=== PATIENT | male | born 1960 | race Caucasian/White ===

== ENCOUNTER 2023-01-17 18:40 | Emergency (ER) | payer OTHER ==
[~2023-01-17] VITALS: Ht 177.8 cm; Wt 77.1 kg
[2023-01-17 18:42] VITALS: BP 134/79
--- NOTE | 2023-01-17 18:50 | NUR ---
PT AMBULATED TO BED 3
[2023-01-17 19:13] LABS: BASOPHILS % (AUTO) 0.4 % (0.0-2.0); EOSINOPHILS # (AUTO) 0.3 K/uL (0-0.4); EOSINOPHILS % (AUTO) 2.8 % (0.0-4.0); HEMATOCRIT 40.5 % (36-52); HEMOGLOBIN 13.7 g/dL (12.0-18.0); LYMPHOCYTES # (AUTO) 1.6 K/uL (2.0-11.5); LYMPHOCYTES % (AUTO) 16.1 % (20.5-51.1); MEAN CORPUSCULAR HEMOGLOBIN 29 pg (27-31); MEAN CORPUSCULAR HGB CONC 34 g/dL (33-37); MEAN CORPUSCULAR VOLUME 84.6 fL (80-94); MONOCYTES % (AUTO) 9.8 % (1.7-9.3); NEUTROPHILS % (AUTO) 70.9 % (42.2-75.2); PLATELET COUNT (AUTO) 220 K/uL (140-450); RED BLOOD CELL COUNT(AUTO) 4.78 MIL/uL (4.20-6.10); RED CELL DISTRIBUTION WIDTH 14.1 % (11.6-13.7); WHITE BLOOD COUNT (AUTO) 9.8 K/uL (4.8-10.8)
[2023-01-17] MEDS ORDERED: KETOROLAC 30 MG/ML VIAL IVP ONE (19:15)
[2023-01-17] MEDS ORDERED: NACL 0.9% 1,000 ML IV ONE (19:15)
[2023-01-17 19:29] LABS: ALBUMIN 3.7 g/dL (3.4-5.0); ANION GAP 12.6 (8-16); CARBON DIOXIDE 29.3 mmol/L (21-32); CREATININE 1.1 mg/dL (0.6-1.3); POTASSIUM 3.9 mmol/L (3.5-5.1); TOTAL BILIRUBIN 0.3 mg/dL (0.0-1.0)
--- NOTE | 2023-01-17 19:35 | NUR ---
PT STATES HE DOES NOT WANT AN IV, MADE AWARE. MEDICATION DRAWN UP AND WASTED AND BEDSIDE.
[2023-01-17] MEDS ORDERED: IBUPROFEN 800 MG TAB PO ONE (20:40)
[2023-01-17] MEDS ORDERED: LOPERAMIDE 2 MG CAP PO ONE (20:40)
[2023-01-17] MEDS ORDERED: DICYCLOMINE HCL LIQUID 20 MG, ALUMINUM HYD/MAG/SIMETHICONE 30 ML, LIDOCAINE VISCOUS 2% ... PO ONE ×3 (20:40)
[2023-01-17] MEDS ORDERED: DICYCLOMINE HCL LIQUID 10 MG/5 ML UDC ONE (20:43)
[2023-01-17] MEDS ORDERED: ALUMINUM HYD/MAG/SIMETHICONE 30 ML UDC ONE (20:43)
[2023-01-17] MEDS ORDERED: ALUM355S5 PO (20:44)
[2023-01-17] MEDS ORDERED: LOPE1TAB14 PO (20:44)
[2023-01-17] MEDS ORDERED: IBUP-2213 PO (20:44)
[2023-01-17] MEDS ORDERED: BISM262C10 PO (20:44)
[2023-01-17 21:02] VITALS: BP 134/79
--- NOTE | 2023-01-17 21:02 | NUR ---
Patient discharged with v/s stable. Written and verbal after care instructions given and explained. Patient alert, oriented and verbalized understanding of instructions. Ambulatory with steady gait. All questions addressed prior to discharge. ID band removed. Patient advised to follow up with PMD. Rx of ANATACID, BISMATROL, IBUPROFEN, LOPERAMIDE given. Patient educated on indication of medication including possible reaction and side effects. Opportunity to ask questions provided and answered.
== END 2023-01-17 21:02 | disposition home or self-care (01) ==
LOC: MED 18:40
DX: A08.4 Viral intestinal infection, unspecified (principal); K63.89 Other specified diseases of intestine; K57.90 Diverticulosis of intestine, part unspecified, without perforation or abscess without bleeding; K76.89 Other specified diseases of liver; Z79.899 Other long term (current) drug therapy
CPT/HCPCS: 36415; 74176; 80053; 82150; 83690; 85025; 99284; J1885

== ENCOUNTER 2023-06-25 12:16 | Emergency (ER) | payer OTHER ==
[~2023-06-25] VITALS: Ht 177.8 cm; Wt 81.6 kg
[~2023-06-25 12:16] MED LIST: ALUM355S5 PO; BISM262C10 PO; IBUP-2213 PO; LOPE1TAB14 PO
[2023-06-25 12:18] VITALS: BP 157/82; PULSE 71; RESP 20; TEMP 98.1; O2SAT 97
[2023-06-25 13:03] LABS: BASOPHILS % (AUTO) 0.6 % (0.0-2.0); EOSINOPHILS # (AUTO) 0.3 K/uL (0-0.4); EOSINOPHILS % (AUTO) 3.3 % (0.0-4.0); HEMATOCRIT 42.3 % (36-52); HEMOGLOBIN 14.2 g/dL (12.0-18.0); LYMPHOCYTES # (AUTO) 1.7 K/uL (2.0-11.5); LYMPHOCYTES % (AUTO) 20.8 % (20.5-51.1); MEAN CORPUSCULAR HEMOGLOBIN 29 pg (27-31); MEAN CORPUSCULAR HGB CONC 34 g/dL (33-37); MEAN CORPUSCULAR VOLUME 85.8 fL (80-94); MONOCYTES # (AUTO) 0.7 K/uL (0.8-1.0); MONOCYTES % (AUTO) 8.2 % (1.7-9.3); NEUTROPHILS # (AUTO) 5.4 K/uL (1.8-7.7); NEUTROPHILS % (AUTO) 67.1 % (42.2-75.2); PLATELET COUNT (AUTO) 219 K/uL (140-450); RED BLOOD CELL COUNT(AUTO) 4.94 MIL/uL (4.20-6.10); RED CELL DISTRIBUTION WIDTH 14.7 % (11.6-13.7)
[2023-06-25 13:16] LABS: ALBUMIN 3.9 g/dL (3.4-5.0); ANION GAP 10.4 (8-16); CALCIUM 8.5 mg/dL (8.5-10.1); CARBON DIOXIDE 30.6 mmol/L (21-32); CREATININE 1.2 mg/dL (0.6-1.3); TOTAL BILIRUBIN 0.3 mg/dL (0.0-1.0)
[2023-06-25] MEDS ORDERED: ASPIRIN 325 MG TAB PO ONE (14:35)
[2023-06-25] MEDS ORDERED: NITROGLYCERIN 0.4 MG TAB SL ONE (14:35)
[2023-06-25] MEDS ORDERED: NACL 0.9% 1,000 ML IV ONE (14:35)
[2023-06-25] MEDS ORDERED: HEPARIN PER PHARMACY MC STA (15:28)
[2023-06-25 16:06] LABS: INR 0.95 (0.8-1.2); PARTIAL THROMBOPLASTIN TIME 26.4 secs (22-35.6)
[2023-06-25] MEDS ORDERED: HEPARIN PER PHARMACY MC PRN (16:25)
[2023-06-25] MEDS ORDERED: hePARIN / DEXT 5% PREMIX 250 ML IV SCH (17:00)
[2023-06-25 17:40] VITALS: BP 120/77; PULSE 69; RESP 17; O2SAT 98
== END 2023-06-25 17:41 | disposition short-term general hospital (02) ==
LOC: MED 12:16
DX: I21.4 Non-ST elevation (NSTEMI) myocardial infarction (principal); R07.89 Other chest pain; F17.290 Nicotine dependence, other tobacco product, uncomplicated; Z79.899 Other long term (current) drug therapy
CPT/HCPCS: 36415; 71045; 80053; 83880; 84484; 85025; 85610; 85730; 93005; 96361; 96374; 99285; J1644; J7030